=== PATIENT | female | born 1990 | race Caucasian/White ===

== ENCOUNTER 2019-06-26 12:03 | Inpatient (IN) | payer BC ==
[2019-06-26] MEDS ORDERED: Nalbuphine 10 MG/1 ML Vial IVPUSH PRN (12:32)
[2019-06-26] MEDS ORDERED: Ondansetron 4 MG/2 ML SDV IVPUSH PRN (12:32)
[2019-06-26] MEDS ORDERED: Sodium Chloride 0.9% 10 ML Syringe FLUSH PRN (12:32)
[2019-06-26] MEDS ORDERED: Lactated Ringers 1,000 ML ONE (12:38)
[2019-06-26] MEDS ORDERED: Oxytocin/Lactated Ringers 10 UNIT/1,000 ML BAG IV ONE (12:38)
[2019-06-26] MEDS ORDERED: Lidocaine 1% 50 ML MDV INJECT SCH (12:45)
[2019-06-26] MEDS ORDERED: Oxytocin/Lactated Ringers 10 UNIT/1,000 ML BAG IV SCH (12:45)
[2019-06-26] MEDS: Oxytocin/Lactated Ringers 10 UNIT/1,000 ML BAG IV SCH (13:14)
[2019-06-26] MEDS: Lactated Ringers 1,000 ML IV SCH ×4 (13:15→23:55)
--- NOTE | 2019-06-26 14:21 | PCM.LDHP ---
L&D History of Present Illness - General Date of Service: 06/26/19 Admit Problem/Dx: Patient Status Order with Admit Dx/Problem 06/26/19 12:32 Patient Status [ADT] Routine Admission Diagnosis/Problem Admission Diagnosis/Problem 06/26/19 14:14 Justine is a 28-year-old 2 para 0010 white female at 41-5/7 weeks gestational age with an ROMAIN of 06/14/2019 admitted for medical induction of labor due to postdates. Source of Information: Patient History Limitations: Reports: No Limitations - History of Present Illness Introduction:: Justine is a 28-year-old 2 para 0010 white female at 41-5/7 weeks gestational age with an ROMAIN of 06/14/2019 admitted for medical induction of labor due to postdates.The procedure, risks, benefits, alternatives of care been discussed with patient. She appears understand and wishes to proceed. Patient was then followed closely over the last 2 weeks with testing which has been reassuring. PICK REMOVER history 2 para 0010. ROMAIN of 06/14/2019 as determined by a 19 weeks ultrasound and a 33 week ultrasound. Patient had menarche at approximately age 12. Cycles irregular. Last menstrual cycle was unknown. Patient received late care. course was otherwise relatively unremarkable. She is group B strep negative. She had an invasive testing which was negative. She plans to breast-feed. She is on ferrous sulfate for mildly decreased hemoglobin. Course patient's first visit in our clinic was at 30 weeks and 4 days. She made good fundal height growth. Her weight increased from 178 pounds at her first visit to 203 pounds for 15 pound weight gain. laboratory testing shows blood to be O+ with a negativescreen. Her second trimester testing showed a hemoglobin 11.9 g/dL with platelets at 265, 000. Her GTT was normal at 97. Follow-up hemoglobin was 13.0 g/dL and platelets were 246,000. RPR is nonreactive. Allergies: None Medications: 1. Ferrous sulfate 325 mg by mouth daily. 2. Probiotic oral capsule by mouth daily 3. [place]imes-3 capsule 2 daily 4. Vitamin D Daily 5. Magnesium Tabs Daily 6. Multivitamin Oral Tablet Daily Past Medical History: Remarkable Past Surgical History: 1. Tonsillectomy 2013 Family History: Glue with Down Syndrome. Mother Is Alive and Well. Father Is Alive Is the Recipient of a Kidney Transplant. Does Have a History of Melanoma. One Brother Alive and Well. One Sister Alive and Well. Maternal Grandmother Is Alive and Well. Maternal Grandfather Is Secondary to Lung CancerWas a Smoker. Paternal Grandmother Is Alive at Age 91 and Paternal Grandfather Is at Age 90. No Family History of Cancer, Bleeding or Clotting Disorders , Anesthesia Abnormalities or -related Issues. Social History: Patient Is Single and Lives in [place], [place]. The Significant Other and Father the Baby Is Gerardo Rinaldi. She Does Not Use Any Significant Most Alcohol, Drugs or Tobacco. Review of systems: In general patient has no complaints. Baby has been active. She has had some Yash Escalante contractions. Skin: Negative Lungs: No infectious symptoms or shortness of breath Cardiovascular: No chest pain or exercise intolerance Breasts: Changes associated . Patient plans to breast-feed GI: Negative : Body Habitus changes associated with Musculoskeletal: Negative Neurological: Negative In general the patient is well-developed, well-nourished, pleasant female of stated age in no acute distress. On last evaluation in clinic 06/23/2019 blood pressure is 112/82. Weight was 203.6 pounds. Her pre- weight by history was 178.4 pounds. Height is 5 feet 5 inches. Skin is warm dry without lesions. HEENT, neck and back within normal limits. Lungs are clear with good breath sounds in all lung emerson. Cardiovascular exam shows regular and rhythm without murmurs. Abdomen is gravid with fundal height on last evaluation clinic at 38 cm. Baby in vertex presentation. Genital-cervix is 2, 70% effaced, soft, -3 station, mid position. Extremities and neurological exam are grossly within normal limits. - Related Data Allergies/Adverse Reactions: Allergies Allergy/AdvReac Type Severity Reaction Status Date / Time No Known Allergies Allergy Verified 06/26/19 12:32 H&P Review of Systems - Review of Systems: Review Of Systems: See Below L&D Exam - Exam Exam: See Below - Vital Signs Weight: 94.347 kg - Patient Data Lab Results Last 24 hrs: Laboratory Results - last 24 hr 06/26/19 Range/Units 12:45 WBC 9.09 (3.98-10.04) K/mm3 RBC 4.34 (3.98-5.22) M/mm3 Hgb 12.6 (11.2-15.7) gm/dl Hct 37.5 (34.1-44.9) % MCV 86.4 (79.4-94.8) fl MCH 29.0 (25.6-32.2) pg MCHC 33.6 (32.2-35.5) g/dl RDW Std Deviation 42.6 (36.4-46.3) fL Plt Count 252 (182-369) K/mm3 MPV 9.9 (9.4-12.3) fl Neut % (Auto) 72.4 H (34.0-71.1) % Lymph % (Auto) 17.3 L (19.3-51.7) % [place] % (Auto) 8.9 (4.7-12.5) % Eos % (Auto) 1.2 (0.7-5.8) Baso % (Auto) 0.1 (0.1-1.2) % Neut # (Auto) 6.58 H (1.56-6.13) K/mm3 Lymph # (Auto) 1.57 (1.18-3.74) K/mm3 [place] # (Auto) 0.81 H (0.24-0.36) K/mm3 Eos # (Auto) 0.11 (0.04-0.36) K/mm3 Baso # (Auto) 0.01 (0.01-0.08) K/mm3 Result Diagrams: 06/26/19 12:45 Problem List Initiated/Reviewed/Updated: Yes Orders Last 24hrs: Active Orders 24 hr Category Date Time Status Patient Status [ADT] Routine ADT 06/26/19 12:32 Active Activity as Tolerated [RC] PFP Care 06/26/19 12:32 Active Communication Order [RC] ASDIRECTED Care 06/26/19 12:32 Active Heart Tones [RC] ASDIRECTED Care 06/26/19 12:33 Active Non Stress Test [RC] PER UNIT ROUTINE Care 06/26/19 12:32 Active Notify Provider [RC] PFP Care 06/26/19 12:32 Active Notify Provider [RC] PRN Care 06/26/19 12:32 Active Peripheral IV Care [RC] . DIRECTED Care 06/26/19 12:33 Active Pump Management, Intrathecal [RC] ASDIRECTED Care 06/26/19 12:33 Active Vital Signs [RC] PER UNIT ROUTINE Care 06/26/19 12:32 Active Regular Diet [DIET] Diet 06/26/19 Lunch Active RAPID PLASMA REAGIN,RPR [CHEM] Routine Lab 06/26/19 12:45 Received Lactated Ringers [Ringers, Lactated] 1,000 ml Med 06/26/19 12:45 Active IV ASDIRECTED Lidocaine 1% [Xylocaine 1%] Med 06/26/19 12:45 Active 50 ml INJECT .ONETIME Nalbuphine [Nubain] Med 06/26/19 12:32 Active 10 mg IVPUSH Q2H PRN Ondansetron [Zofran] Med 06/26/19 12:32 Active 4 mg IVPUSH Q4H PRN Oxytocin/Lactated Ringers [Pitocin in LR 10 Units/1,000 Med 06/26/19 12:45 Active ML] 10 unit in 1,000 ml IV .CONTINUOUS Oxytocin/Lactated Ringers [Pitocin in LR 10 Units/1,000 Med 06/26/19 12:45 Active ML] 10 unit in 1,000 ml IV TITRATE Sodium Chloride 0.9% [Saline Flush] Med 06/26/19 12:32 Active 10 ml FLUSH ASDIRECTED PRN Electronic Heart Tones Ext w TOCO [WOMSER] Oth 06/26/19 12:32 Ordered Routine Electronic Heart Tones Internal [WOMSER] Per Unit Oth 06/26/19 12:32 Ordered Routine Peripheral IV Insertion Adult [OM.PC] Routine Oth 06/26/19 12:32 Ordered Resuscitation Status Routine Resus Stat 06/26/19 12:32 Ordered Medication Orders Lactated Ringer's (Ringers, Lactated) 1,000 mls @ 100 mls/hr IV ASDIRECTED HUGH Last Admin: 06/26/19 13:15 Dose: 100 mls/hr Oxytocin/Lactated Ringer's (Pitocin In Lr 10 Units/1,000 Ml) 10 unit in 1,000 mls @ 12 mls/hr IV TITRATE HUGH; Protocol Last Admin: 06/26/19 13:14 Dose: 2 munits/min, 12 mls/hr Oxytocin/Lactated Ringer's (Pitocin In Lr 10 Units/1,000 Ml) 10 unit in 1,000 mls @ 500 mls/hr IV .CONTINUOUS HUGH Lidocaine HCl (Xylocaine 1%) 50 ml INJECT .ONETIME HUGH Nalbuphine HCl (Nubain) 10 mg IVPUSH Q2H PRN PRN Reason: Pain Ondansetron HCl (Zofran) 4 mg IVPUSH Q4H PRN PRN Reason: Nausea/Vomiting Sodium Chloride (Saline Flush) 10 ml FLUSH ASDIRECTED PRN PRN Reason: Keep Vein Open Assessment/Plan Comment:: 1. 41-5/7 week intrauterine , admitted for medical induction of labor 2.Group B strep screen negative 3. Patient plans to breast-feed 4. Patient is okay with epidural. Plan: 1. Pitocin induction of labor with artificial rupture membranes induction when head descends. 2. Epidural when necessary for labor analgesia 3. Chest 8 normal spontaneous vaginal delivery 4. CBC and RPR per protocol 5. Support breast-feeding decision.
[2019-06-26] MEDS ORDERED: fentaNYL/Bupivacaine/NS 2 MCG-0.125% 250 ML EPIDUR PRN (22:29)
[2019-06-26] MEDS ORDERED: ePHEDrine 50 MG/ML SDV IVPUSH PRN (22:29)
[2019-06-26] MEDS ORDERED: fentaNYL 100 MCG/2 ML SDV EPIDUR PRN (22:29)
[2019-06-26] MEDS ORDERED: diphenhydrAMINE 50 MG/ML SDV IVPUSH PRN (22:29)
--- NOTE | 2019-06-26 22:55 | PCM.PREANE ---
Preanesthetic Assessment - Procedure Proposed Procedure: bucky - Anesthesia/Transfusion/Family Hx Anesthesia History: Prior Anesthesia Without Reaction Family History of Anesthesia Reaction: No Transfusion History: No Prior Transfusion(s) - Review of Systems General: No Symptoms Pulmonary: No Symptoms Cardiovascular: No Symptoms Gastrointestinal: No Symptoms Neurological: No Symptoms Other: Reports: None - Physical Assessment Vital Signs: Last Vital Signs Temp 98.6 F 06/26/19 12:32 Pulse 89 06/26/19 12:32 Resp 16 06/26/19 12:32 BP 130/67 06/26/19 12:32 Pulse Ox Height: 5 ft 5 in Weight: 94.347 kg ASA Class: 2 Mental Status: Alert & Oriented x3 Airway Class: Mallampati = 1 Dentition: Reports: Normal Dentition Thyro-Mental Finger Breadths: 3 Mouth Opening Finger Breadths: 3 ROM/Head Extension: Full Lungs: Clear to Auscultation, Normal Respiratory Effort Cardiovascular: Regular Rate, Regular Rhythm - Lab Values: Laboratory Last Values WBC 9.09 K/mm3 (3.98-10.04) 06/26/19 12:45 RBC 4.34 M/mm3 (3.98-5.22) 06/26/19 12:45 Hgb 12.6 gm/dl (11.2-15.7) 06/26/19 12:45 Hct 37.5 % (34.1-44.9) 06/26/19 12:45 MCV 86.4 fl (79.4-94.8) 06/26/19 12:45 MCH 29.0 pg (25.6-32.2) 06/26/19 12:45 MCHC 33.6 g/dl (32.2-35.5) 06/26/19 12:45 RDW Std Deviation 42.6 fL (36.4-46.3) 06/26/19 12:45 Plt Count 252 K/mm3 (182-369) 06/26/19 12:45 MPV 9.9 fl (9.4-12.3) 06/26/19 12:45 Neut % (Auto) 72.4 % (34.0-71.1) H 06/26/19 12:45 Lymph % (Auto) 17.3 % (19.3-51.7) L 06/26/19 12:45 [place] % (Auto) 8.9 % (4.7-12.5) 06/26/19 12:45 Eos % (Auto) 1.2 (0.7-5.8) 06/26/19 12:45 Baso % (Auto) 0.1 % (0.1-1.2) 06/26/19 12:45 Neut # (Auto) 6.58 K/mm3 (1.56-6.13) H 06/26/19 12:45 Lymph # (Auto) 1.57 K/mm3 (1.18-3.74) 06/26/19 12:45 [place] # (Auto) 0.81 K/mm3 (0.24-0.36) H 06/26/19 12:45 Eos # (Auto) 0.11 K/mm3 (0.04-0.36) 06/26/19 12:45 Baso # (Auto) 0.01 K/mm3 (0.01-0.08) 06/26/19 12:45 RPR Non-reactive (NONREACTIVE) 06/26/19 12:45 - Allergies Allergies/Adverse Reactions: Allergies Allergy/AdvReac Type Severity Reaction Status Date / Time No Known Allergies Allergy Verified 06/26/19 12:32 - Blood Blood Available: No - Acknowledgements Anesthesia Type Planned: Epidural Pt an Appropriate Candidate for the Planned Anesthesia: Yes Alternatives and Risks of Anesthesia Discussed w Pt/Guardian: Yes Pt/Guardian Understands and Agrees with Anesthesia Plan: Yes PreAnesthesia Questionnaire Cardiovascular History: Reports: None Respiratory History: Reports: None 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: : 1 Para: 0 - Past Surgical History HEENT Surgical History: Reports: Tonsillectomy - SUBSTANCE USE Smoking Status *Q: Never Smoker Tobacco Use Within Last Twelve Months: No Second Hand Smoke Exposure: No Days Per Week of Alcohol Use: 0 Recreational Drug Use History: No - HOME MEDS Home Medications: Home Meds Iron 1 tab PO DAILY 06/26/19 [History] [id number]/Iron Fumarate/FA/DSS [ 19 Tablet] 1 tab PO DAILY 06/26/19 [ History] - CURRENT (IN HOUSE) MEDS Current Meds: Current Medications Diphenhydramine HCl (Benadryl) 25 mg IVPUSH Q6H PRN PRN Reason: pruritis Ephedrine Sulfate (Ephedrine Sulfate) 5 mg IVPUSH ASDIRECTED PRN PRN Reason: Hypotension Fentanyl (Sublimaze) 100 mcg EPIDUR Q3H PRN PRN Reason: Pain Last Admin: 06/26/19 22:38 Dose: 100 mcg Fentanyl/Bupivacaine HCl (Fentanyl/Bupivacaine/Ns 2 Mcg-0.125% 250 Ml) 0 ml EPIDUR CONTINUOUS PRN PRN Reason: Pain Last Admin: 06/26/19 22:40 Dose: 250 ml Lactated Ringer's (Ringers, Lactated) 1,000 mls @ 100 mls/hr IV ASDIRECTED HUGH Last Admin: 06/26/19 22:06 Dose: 100 mls/hr Oxytocin/Lactated Ringer's (Pitocin In Lr 10 Units/1,000 Ml) 10 unit in 1,000 mls @ 12 mls/hr IV TITRATE HUGH; Protocol Last Titration: 06/26/19 17:35 Dose: 14 munits/min, 84 mls/hr Oxytocin/Lactated Ringer's (Pitocin In Lr 10 Units/1,000 Ml) 10 unit in 1,000 mls @ 500 mls/hr IV .CONTINUOUS HUGH Lidocaine HCl (Xylocaine 1%) 50 ml INJECT .ONETIME HUGH Nalbuphine HCl (Nubain) 10 mg IVPUSH Q2H PRN PRN Reason: Pain Last Admin: 06/26/19 21:53 Dose: 10 mg Ondansetron HCl (Zofran) 4 mg IVPUSH Q4H PRN PRN Reason: Nausea/Vomiting Sodium Chloride (Saline Flush) 10 ml FLUSH ASDIRECTED PRN PRN Reason: Keep Vein Open Discontinued Medications Lactated Ringer's (Ringers, Lactated) Confirm Administered Dose 1,000 mls @ as directed .ROUTE .STK-MED ONE Stop: 06/26/19 12:39 Last Admin: 06/26/19 13:12 Dose: Not Given Oxytocin/Lactated Ringer's (Pitocin In Lr 10 Units/1,000 Ml) Confirm Administered Dose 10 unit in 1,000 mls @ as directed IV .STK-MED ONE Stop: 06/26/19 12:39 Last Admin: 06/26/19 13:12 Dose: Not Given
[2019-06-27] MEDS ORDERED: Bupivacaine 0.25% 10 ML SDV ONE ×2
[2019-06-27] MEDS ORDERED: ePHEDrine/Normal Saline 25 MG/5 ML Syringe ONE ×2
[2019-06-27] MEDS ORDERED: Sodium Chloride 0.9% 1,000 ML ONE ×2 (00:03→06:37)
[2019-06-27] MEDS ORDERED: Terbutaline 1 MG/ML SDV ONE (00:37)
--- NOTE | 2019-06-27 01:03 | PCM.SN ---
- Free Text/Narrative Note: Labor progress note: I was called to place an intrauterine pressure catheter to more closely monitor the contractions and evaluate some heart rate decelerations. On evaluation patient is noted to be at 10 units of Pitocin per hour and was razia approximately every 2-1/2-3 minutes. Contractions were strong as identified by the intrauterine pressure catheter after its placement. It was placed without any concerns. Scalp electrode was also placed. heart tones showed variable decelerations with potential late components. Some of the heart rates were in the high 80s to 100. She was started on amnioinfusion using normal saline as the distending medium and with this the heart tones returned to near normal. At this time Pitocin has been discontinued and patient continues to contract proximally every 3 minutes. Her still moderate in intensity. Her cervix is 5 cm, 100% effaced, -1 station. Baby appears to be in a left occiput anterior position. Patient is group B strep negative. Assessment: 1. Moderate progress in labor. 2. States with meconium stained amniotic fluid and the very minimal amount of amniotic fluid as potential factor related to her heart rate decelerations. Plan: 1. Monitor heart rate pattern very closely. 2. Continue with amnioinfusion. 3. Discussions then held with patient as to possible need for section if she has recurrence/persistence of nonreassuring heart tones. The procedure, risks, benefits, alternatives of care discussed due to the patient. She appears understand. She has signed consent in advance in case an urgent C- section was needed at a later time 4. Indwelling bladder catheter placed 5. SCDs to be placed.
[2019-06-27] MEDS: Lactated Ringers 1,000 ML IV SCH (07:06)
[2019-06-27] MEDS: Oxytocin/Lactated Ringers 10 UNIT/1,000 ML BAG IV SCH (08:51)
[2019-06-27] MEDS ORDERED: Witch Hazel Medicated Pads 40/Jar TOP PRN (10:48)
[2019-06-27] MEDS ORDERED: Benzocaine/Menthol 20%-0.5% Spray 56 GM Canister TOP PRN (10:49)
--- NOTE | 2019-06-27 11:55 | PCM48HPAN ---
Post Anesthesia Note - EVALUATION WITHIN 48HRS OF ANESTHETIC Vital Signs in Normal Range: Yes Patient Participated in Evaluation: Yes Respiratory Function Stable: Yes Airway Patent: Yes Cardiovascular Function Stable: Yes Hydration Status Stable: Yes Pain Control Satisfactory: Yes Nausea and Vomiting Control Satisfactory: Yes Mental Status Recovered: Yes Vital Signs: Last Vital Signs Temp 37.0 C 06/26/19 12:32 Pulse 89 06/26/19 12:32 Resp 16 06/26/19 12:32 BP 130/67 06/26/19 12:32 Pulse Ox
[2019-06-27] MEDS: Ibuprofen 600 MG Tab PO PRN ×2 (13:40→20:43)
[2019-06-27] MEDS: Docusate Sodium 100 MG Cap PO PRN (21:00)
[2019-06-28] MEDS: Ibuprofen 600 MG Tab PO PRN ×3 (03:55→20:55)
--- NOTE | 2019-06-28 08:49 | PCM.PNPP ---
- General Info Date of Service: 06/28/19 Functional Status: Reports: Pain Controlled - Review of Systems General: Reports: No Symptoms HEENT: Reports: No Symptoms Pulmonary: Reports: No Symptoms Cardiovascular: Reports: No Symptoms Gastrointestinal: Reports: No Symptoms Genitourinary: Reports: No Symptoms Musculoskeletal: Reports: No Symptoms Skin: Reports: No Symptoms Neurological: Reports: No Symptoms Psychiatric: Reports: No Symptoms - General Info Date of Service: 06/28/19 - Patient Data Vital Signs - Most Recent: Last Vital Signs Temp 36.3 C 06/27/19 20:49 Pulse 84 06/27/19 20:49 Resp 15 06/27/19 20:49 BP 115/67 06/27/19 20:49 Pulse Ox 98 06/27/19 20:49 Weight - Most Recent: 94.347 kg Med Orders - Current: Current Medications Benzocaine/Menthol (Dermoplast Pain Relief [place]) 1 gm TOP ASDIRECTED PRN PRN Reason: perineal pain Last Admin: 06/27/19 12:39 Dose: 1 applic Diphenhydramine HCl (Benadryl) 25 mg IVPUSH Q6H PRN PRN Reason: pruritis Docusate Sodium (Colace) 100 mg PO BID PRN PRN Reason: Constipation Last Admin: 06/27/19 21:00 Dose: 100 mg Ephedrine Sulfate (Ephedrine Sulfate) 5 mg IVPUSH ASDIRECTED PRN PRN Reason: Hypotension Fentanyl (Sublimaze) 100 mcg EPIDUR Q3H PRN PRN Reason: Pain Last Admin: 06/26/19 22:38 Dose: 100 mcg Fentanyl/Bupivacaine HCl (Fentanyl/Bupivacaine/Ns 2 Mcg-0.125% 250 Ml) 0 ml EPIDUR CONTINUOUS PRN PRN Reason: Pain Last Admin: 06/26/19 22:40 Dose: 250 ml Lactated Ringer's (Ringers, Lactated) 1,000 mls @ 100 mls/hr IV ASDIRECTED HUGH Last Admin: 06/27/19 07:06 Dose: 100 mls/hr Oxytocin/Lactated Ringer's (Pitocin In Lr 10 Units/1,000 Ml) 10 unit in 1,000 mls @ 12 mls/hr IV TITRATE HUGH; Protocol Last Titration: 06/27/19 10:19 Dose: 500 mls/hr Oxytocin/Lactated Ringer's (Pitocin In Lr 10 Units/1,000 Ml) 10 unit in 1,000 mls @ 500 mls/hr IV .CONTINUOUS HUGH Ibuprofen (Motrin) 600 mg PO Q6H PRN PRN Reason: Pain/Fever Last Admin: 06/28/19 03:55 Dose: 600 mg Lidocaine HCl (Xylocaine 1%) 50 ml INJECT .ONETIME HUGH Nalbuphine HCl (Nubain) 10 mg IVPUSH Q2H PRN PRN Reason: Pain Last Admin: 06/26/19 21:53 Dose: 10 mg Ondansetron HCl (Zofran) 4 mg IVPUSH Q4H PRN PRN Reason: Nausea/Vomiting Sodium Chloride (Saline Flush) 10 ml FLUSH ASDIRECTED PRN PRN Reason: Keep Vein Open Franc[place]ke Chan (Tucks) 1 pad TOP ASDIRECTED PRN PRN Reason: perineal pain Last Admin: 06/27/19 12:39 Dose: 1 applic Discontinued Medications Bupivacaine HCl (Sensorcaine-Mpf 0.25%) 10 ml .ROUTE .STK-MED ONE Stop: 06/27/19 00:01 Bupivacaine HCl (Sensorcaine-Mpf 0.25%) 10 ml .ROUTE .STK-MED ONE Stop: 06/27/19 00:01 Ephedrine Sulfate (Ephedrine In Ns) 25 mg .ROUTE .STK-MED ONE Stop: 06/27/19 00:01 Ephedrine Sulfate (Ephedrine In Ns) 25 mg .ROUTE .STK-MED ONE Stop: 06/27/19 00:01 Lactated Ringer's (Ringers, Lactated) Confirm Administered Dose 1,000 mls @ as directed .ROUTE .STK-MED ONE Stop: 06/26/19 12:39 Last Admin: 06/26/19 13:12 Dose: Not Given Oxytocin/Lactated Ringer's (Pitocin In Lr 10 Units/1,000 Ml) Confirm Administered Dose 10 unit in 1,000 mls @ as directed IV .STK-MED ONE Stop: 06/26/19 12:39 Last Admin: 06/26/19 13:12 Dose: Not Given Sodium Chloride (Normal Saline) Confirm Administered Dose 1,000 mls @ as directed .ROUTE .STK-MED ONE Stop: 06/27/19 00:04 Last Admin: 06/27/19 00:17 Dose: Not Given Sodium Chloride (Normal Saline) Confirm Administered Dose 1,000 mls @ as directed .ROUTE .STK-MED ONE Stop: 06/27/19 06:38 Last Admin: 06/27/19 07:03 Dose: Not Given Terbutaline Sulfate (Brethine) Confirm Administered Dose 1 mg .ROUTE .STK-MED ONE Stop: 06/27/19 00:38 Last Admin: 06/27/19 09:11 Dose: Not Given - Infant Interaction Infant Disposition, : at Bedside Support Person: Significant Other - Recovery Exam Fundal Tone: Firm Fundal Level: 1 Fingerbreadths Below Umbilicus Fundal Placement: Midline Lochia Amount: Small Lochia Color: Rubra/Red Episiotomy/Laceration: Approximated Bladder Status: Voiding Urinary Elimination: Voided - Exam General: Alert, Oriented HEENT: Pupils Equal Neck: Supple Lungs: Clear to Auscultation, Normal Respiratory Effort Cardiovascular: Regular Rate, Regular Rhythm GI/Abdominal Exam: Normal Bowel Sounds, Soft, Non-Tender, No Organomegaly, No Distention, No Abnormal Bruit, No Mass, Pelvis Stable Extremities: Normal Inspection Skin: Warm, Dry, Intact Wound/Incisions: Healing Well Neurological: No New Focal Deficit Psy/Mental Status: Alert, Normal Affect, Normal Mood - Problem List Review Problem List Initiated/Reviewed/Updated: Yes - My Orders Last 24 Hours: My Active Orders 06/27/19 20:44 Docusate Sodium [Colace] 100 mg PO BID PRN - Assessment Assessment:: Term delivery PPD1. Doing ok. Some breast feeding challenges. Home tomorrow.
[2019-06-28] MEDS: Docusate Sodium 100 MG Cap PO PRN (14:34)
--- NOTE | 2019-06-28 15:09 | PCM.SN ---
- Free Text/Narrative Note: Delivery note: Justine is a 28-year-old 2 now para 1011 white female was admitted for induction of labor on 2018. She underwent Pitocin induction with artificial rupture membranes augmentation and slowly but steadily progressed to complete cervical dilation. She had decreased amount of amniotic fluid which is felt to be due to her postdates and had light meconium-stained amniotic fluid. She began having variable decelerations and an IUPC was placed followed by amnioinfusion. That her heart rate abnormalities. The electrode was also applied. She underwent epidural for labor analgesia. The patient progressed to complete cervical dilation at 0500 hrs. on 2018. She pushed for a short period time then rested and labor down. At 1018 hrs. on 06/27/2019 she delivered a viable, johsnon, with Apgars of 9 and 9 via a vacuum extraction delivery. Vacuum extraction was done for maternal fatigue. This was accomplished with 1 contraction. Patient did very well. The baby weighed 3500 g (7 pounds 11.5 ounces), had Apgars of 9 and 9 and length of 21.0 inches. The patient had a second-degree perineal laceration and a right vaginal laceration. These were repaired in a routine fashion using 3-0 Monocryl suture. After delivery of the baby Pitocin was increased to 500 mL per hour per protocol. This to increase uterine tone facilitate a decrease in likelihood of uterine bleeding. Estimated blood loss was 200 mL. The umbilical cord had 3 vessels and cord blood was obtained. The placenta delivered in a [place] presentation, appeared intact and complete and was discarded per patient desire. Patient plans to breast-feed. Condition: Good.
[2019-06-29] MEDS: Ibuprofen 600 MG Tab PO PRN (02:50)
--- NOTE | 2019-06-29 08:32 | PCM.DCSUM1 ---
Discharge Summary - Hospital Course HPI Initial Comments: Doing well. Desires discharge today on PPD2. Diagnosis: Stroke: No - Discharge Data Discharge Date: 06/29/19 Discharge Disposition: Home, Self-Care 01 Condition: Good - Referral to Home Health Primary Care Physician: Jason Silvestre MD - Patient Summary/Data Hospital Course: Justine is a 28-year-old 2 now para 1011 white female was admitted for induction of labor on 2018. She underwent Pitocin induction with artificial rupture membranes augmentation and slowly but steadily progressed to complete cervical dilation. She had decreased amount of amniotic fluid which is felt to be due to her postdates and had light meconium-stained amniotic fluid. She began having variable decelerations and an IUPC was placed followed by amnioinfusion. That her heart rate abnormalities. The electrode was also applied. She underwent epidural for labor analgesia. The patient progressed to complete cervical dilation at 0500 hrs. on 2018. She pushed for a short period time then rested and labor down. At 1018 hrs. on 06/27/2019 she delivered a viable, johnson, infant with Apgars of 9 and 9 via a vacuum extraction delivery. Vacuum extraction was done for maternal fatigue. This was accomplished with 1 contraction. Patient did very well. The baby weighed 3500 g (7 pounds 11.5 ounces), had Apgars of 9 and 9 and length of 21.0 inches. The patient had a second-degree perineal laceration and a right vaginal laceration. These were repaired in a routine fashion using 3-0 Monocryl suture. After delivery of the baby Pitocin was increased to 500 mL per hour per protocol. This to increase uterine tone facilitate a decrease in likelihood of uterine bleeding. Estimated blood loss was 200 mL. The umbilical cord had 3 vessels and cord blood was obtained. The placenta delivered in a [place] presentation, appeared intact and complete and was discarded per patient desire. - Patient Instructions Diet: Usual Diet as Tolerated Activity: No Strenuous Activities Driving: May Drive Today Showering/Bathing: May Shower Wound/Incision Care: Keep Operative Site/Wound Site Clean and Dry Notify Provider of: Fever, Increased Pain, Swelling and Redness, Drainage, Nausea and/or Vomiting - Discharge Plan *PRESCRIPTION DRUG MONITORING PROGRAM REVIEWED*: No *COPY OF PRESCRIPTION DRUG MONITORING REPORT IN PATIENT KODY: No Home Medications: Home Meds Iron 1 tab PO DAILY 06/26/19 [History] [id number]/Iron Fumarate/FA/DSS [ 19 Tablet] 1 tab PO DAILY 06/26/19 [ History] Patient Handouts: and Mastitis, and Self-Care, Easy -to-Read, Vaginal Delivery, Care After, Breast Pumping Tips, [id number] Referrals: Jason Silvestre MD [Primary Care Provider] - (2 weeks) - Discharge Summary/Plan Comment DC Time >30 min.: No - General Info Date of Service: 06/29/19 Functional Status: Reports: Pain Controlled - Review of Systems General: Reports: No Symptoms HEENT: Reports: No Symptoms Pulmonary: Reports: No Symptoms Cardiovascular: Reports: No Symptoms Gastrointestinal: Reports: No Symptoms Genitourinary: Reports: No Symptoms Musculoskeletal: Reports: No Symptoms Skin: Reports: No Symptoms Neurological: Reports: No Symptoms Psychiatric: Reports: No Symptoms - Patient Data Vitals - Most Recent: Last Vital Signs Temp 37.1 C 06/29/19 03:15 Pulse 68 06/29/19 03:15 Resp 16 06/29/19 03:15 BP 115/60 06/29/19 03:15 Pulse Ox 99 06/29/19 03:15 Weight - Most Recent: 94.347 kg I&O - Last 24 hours: Intake & Output 06/28/19 06/29/19 06/29/19 22:59 06:59 14:59 Intake Total 320 Balance 320 Med Orders - Current: Current Medications Benzocaine/Menthol (Dermoplast Pain Relief [place]) 1 gm TOP ASDIRECTED PRN PRN Reason: perineal pain Last Admin: 06/27/19 12:39 Dose: 1 applic Diphenhydramine HCl (Benadryl) 25 mg IVPUSH Q6H PRN PRN Reason: pruritis Docusate Sodium (Colace) 100 mg PO BID PRN PRN Reason: Constipation Last Admin: 06/28/19 14:34 Dose: 100 mg Ephedrine Sulfate (Ephedrine Sulfate) 5 mg IVPUSH ASDIRECTED PRN PRN Reason: Hypotension Fentanyl (Sublimaze) 100 mcg EPIDUR Q3H PRN PRN Reason: Pain Last Admin: 06/26/19 22:38 Dose: 100 mcg Fentanyl/Bupivacaine HCl (Fentanyl/Bupivacaine/Ns 2 Mcg-0.125% 250 Ml) 0 ml EPIDUR CONTINUOUS PRN PRN Reason: Pain Last Admin: 06/26/19 22:40 Dose: 250 ml Lactated Ringer's (Ringers, Lactated) 1,000 mls @ 100 mls/hr IV ASDIRECTED HUGH Last Admin: 06/27/19 07:06 Dose: 100 mls/hr Oxytocin/Lactated Ringer's (Pitocin In Lr 10 Units/1,000 Ml) 10 unit in 1,000 mls @ 12 mls/hr IV TITRATE HUGH; Protocol Last Titration: 06/27/19 10:19 Dose: 500 mls/hr Oxytocin/Lactated Ringer's (Pitocin In Lr 10 Units/1,000 Ml) 10 unit in 1,000 mls @ 500 mls/hr IV .CONTINUOUS HUGH Ibuprofen (Motrin) 600 mg PO Q6H PRN PRN Reason: Pain/Fever Last Admin: 06/29/19 02:50 Dose: 600 mg Lidocaine HCl (Xylocaine 1%) 50 ml INJECT .ONETIME HUGH Nalbuphine HCl (Nubain) 10 mg IVPUSH Q2H PRN PRN Reason: Pain Last Admin: 06/26/19 21:53 Dose: 10 mg Ondansetron HCl (Zofran) 4 mg IVPUSH Q4H PRN PRN Reason: Nausea/Vomiting Sodium Chloride (Saline Flush) 10 ml FLUSH ASDIRECTED PRN PRN Reason: Keep Vein Open Mikey Chan (Tucks) 1 pad TOP ASDIRECTED PRN PRN Reason: perineal pain Last Admin: 06/27/19 12:39 Dose: 1 applic Discontinued Medications Bupivacaine HCl (Sensorcaine-Mpf 0.25%) 10 ml .ROUTE .STK-MED ONE Stop: 06/27/19 00:01 Bupivacaine HCl (Sensorcaine-Mpf 0.25%) 10 ml .ROUTE .STK-MED ONE Stop: 06/27/19 00:01 Ephedrine Sulfate (Ephedrine In Ns) 25 mg .ROUTE .STK-MED ONE Stop: 06/27/19 00:01 Ephedrine Sulfate (Ephedrine In Ns) 25 mg .ROUTE .STK-MED ONE Stop: 06/27/19 00:01 Lactated Ringer's (Ringers, Lactated) Confirm Administered Dose 1,000 mls @ as directed .ROUTE .STK-MED ONE Stop: 06/26/19 12:39 Last Admin: 06/26/19 13:12 Dose: Not Given Oxytocin/Lactated Ringer's (Pitocin In Lr 10 Units/1,000 Ml) Confirm Administered Dose 10 unit in 1,000 mls @ as directed IV .STK-MED ONE Stop: 06/26/19 12:39 Last Admin: 06/26/19 13:12 Dose: Not Given Sodium Chloride (Normal Saline) Confirm Administered Dose 1,000 mls @ as directed .ROUTE .STK-MED ONE Stop: 06/27/19 00:04 Last Admin: 06/27/19 00:17 Dose: Not Given Sodium Chloride (Normal Saline) Confirm Administered Dose 1,000 mls @ as directed .ROUTE .STNightOwl-MED ONE Stop: 06/27/19 06:38 Last Admin: 06/27/19 07:03 Dose: Not Given Terbutaline Sulfate (Brethine) Confirm Administered Dose 1 mg .ROUTE .STNightOwl-MED ONE Stop: 06/27/19 00:38 Last Admin: 06/27/19 09:11 Dose: Not Given - Exam General: Reports: Alert, Oriented HEENT: Reports: Pupils Equal, Pupils Reactive, EOMI, Mucous Membr. Moist/[place] Neck: Reports: Supple Lungs: Reports: Clear to Auscultation, Normal Respiratory Effort Cardiovascular: Reports: Regular Rate, Regular Rhythm GI/Abdominal Exam: Normal Bowel Sounds, Soft, Non-Tender, No Organomegaly, No Distention, No Abnormal Bruit, No Mass, Pelvis Stable Rectal (Female) Exam: Normal Exam, Normal Rectal Tone Back Exam: Reports: Normal Inspection, Full Range of Motion Extremities: Normal Inspection, Normal Range of Motion, Non-Tender, No Pedal Edema, Normal Capillary Refill Skin: Reports: Warm, Dry, Intact Wound/Incisions: Reports: Healing Well Neurological: Reports: No New Focal Deficit Psy/Mental Status: Reports: Alert, Normal Affect, Normal Mood
== END 2019-06-29 10:45 | disposition home or self-care (01) | DRG 560 ==
LOC: JD.OBCHECK 12:03 → JD.OB 12:06 → OBSVTOIN 06-27 10:18 → JD.OB 06-27 10:19
PROVIDERS: ADMIT Obstetrics & Gynecology; ATTEND Obstetrics & Gynecology
PROC: 10D07Z6 Extraction of Products of Conception, Vacuum, Via Natural or Artificial Opening (ICD-10-PCS; principal; 2019-06-27)
PROC: 10H07YZ Insertion of Other Device into Products of Conception, Via Natural or Artificial Opening (ICD-10-PCS; principal; 2019-06-27)
PROC: 10H073Z Insertion of Monitoring Electrode into Products of Conception, Via Natural or Artificial Opening (ICD-10-PCS; principal; 2019-06-27)
PROC: 3E0E7GC Introduction of Other Therapeutic Substance into Products of Conception, Via Natural or Artificial Opening (ICD-10-PCS; principal; 2019-06-27)
PROC: 10907ZC Drainage of Amniotic Fluid, Therapeutic from Products of Conception, Via Natural or Artificial Opening (ICD-10-PCS; 2019-06-27)
PROC: 3E033VJ Introduction of Other Hormone into Peripheral Vein, Percutaneous Approach (ICD-10-PCS; 2019-06-27)
PROC: 0KQM0ZZ Repair Perineum Muscle, Open Approach (ICD-10-PCS; 2019-06-27)
PROC: 0UQGXZZ Repair Vagina, External Approach (ICD-10-PCS; 2019-06-27)
PROC: 00HU33Z Insertion of Infusion Device into Spinal Canal, Percutaneous Approach (ICD-10-PCS; 2019-06-27)
PROC: 3E0R3BZ Introduction of Anesthetic Agent into Spinal Canal, Percutaneous Approach (ICD-10-PCS; 2019-06-27)
DX: O48.0 Post-term pregnancy (principal); Z37.0 Single live birth; O76 Abnormality in fetal heart rate and rhythm complicating labor and delivery; O77.0 Labor and delivery complicated by meconium in amniotic fluid; O70.1 Second degree perineal laceration during delivery; Z3A.41 41 weeks gestation of pregnancy
CPT/HCPCS: 36415; 51701; 59025; 59409; 85025; 86592; A9270-GY; J2300; J2590; J3010; J3490; J7050; J7120

== ENCOUNTER 2023-11-23 14:28 | Emergency (ER) | payer BC ==
[2023-11-23] MEDS ORDERED: Dextrose 5%-Lactated Ringers 1,000 ML IV SCH (14:45)
== END 2023-11-23 16:43 | disposition home or self-care (01) ==
LOC: JD.ED 14:28
DX: O99.352 Diseases of the nervous system complicating pregnancy, second trimester (principal); G43.909 Migraine, unspecified, not intractable, without status migrainosus; O99.282 Endocrine, nutritional and metabolic diseases complicating pregnancy, second trimester; E03.9 Hypothyroidism, unspecified; Z3A.14 14 weeks gestation of pregnancy; Z79.890 Hormone replacement therapy
CPT/HCPCS: 70450; 70450-26; 82947; 99284

== ENCOUNTER 2024-05-23 07:10 | Inpatient (IN) | payer BC ==
[2024-05-23] MEDS ORDERED: Lidocaine 1% 50 ML MDV INJECT PRN (07:18)
[2024-05-23] MEDS ORDERED: Sodium Chloride 0.9% 10 ML Syringe FLUSH PRN (07:18)
[2024-05-23] MEDS ORDERED: Ondansetron 4 MG/2 ML SDV IVPUSH PRN (07:18)
[2024-05-23] MEDS ORDERED: Nalbuphine 10 MG/1 ML Vial IVPUSH PRN (07:18)
[2024-05-23 08:40] LABS: BASOPHILS PERCENT AUTO 0.3 % (0.0-1.0); EOSINOPHILS ABSOLUTE AUTO 0.1 K/mm3 (0.0-0.4); EOSINOPHILS PERCENT AUTO 1.3 % (0.0-6.0); HEMATOCRIT 35.9 % (37.0-47.0); HEMOGLOBIN 11.7 gm/dl (12.0-16.0); IMMATURE GRAN ABSOLUTE AUTO 0.02 K/mm3 (0.00-0.05); IMMATURE GRAN PERCENT AUTO 0.3 % (0.0-0.4); LYMPHOCYTES ABSOLUTE AUTO 1.3 K/mm3 (1.0-4.8); LYMPHOCYTES PERCENT AUTO 16.3 % (24.0-44.0); MEAN CORPUSCULAR HEMOGLOBIN 27.2 pg (28.0-32.0); MEAN CORPUSCULAR HGB CONC 32.6 g/dl (32.0-36.0); MEAN CORPUSCULAR VOLUME 83.5 fl (83.0-99.0); MEAN PLATELET VOLUME 9.9 fl (9.4-12.3); MONOCYTES ABSOLUTE AUTO 0.6 K/mm3 (0.0-0.8); MONOCYTES PERCENT AUTO 7.4 % (0.0-8.0); NEUTROPHILS ABSOLUTE AUTO 5.8 K/mm3 (1.8-7.7); NEUTROPHILS PERCENT AUTO 74.4 % (41.0-71.0); PLATELET COUNT,PLT 226 K/mm3 (150-400); WHITE BLOOD CELL COUNT,WBC 7.74 K/mm3 (3.9-11.3)
[2024-05-23] MEDS ORDERED: Oxytocin/0.9 % Sodium Chloride 30 UNIT/500 ML BAG IV SCH (08:45)
[2024-05-23] MEDS: Lactated Ringers 1,000 ML IV SCH (08:52)
[2024-05-23] MEDS: Oxytocin/0.9 % Sodium Chloride 30 UNIT/500 ML BAG IV SCH (08:52)
[2024-05-23] MEDS: Sodium Chloride 0.9% 10 ML Syringe FLUSH SCH (10:42)
[2024-05-23] MEDS ORDERED: ePHEDrine 50 MG/ML SDV IVPUSH PRN (14:55)
[2024-05-23] MEDS ORDERED: diphenhydrAMINE 50 MG/ML SDV IVPUSH PRN (14:55)
[2024-05-23] MEDS: Bupivacaine/fentaNYL/NS 100 ML Bag EPIDUR PRN (15:12)
[2024-05-23] MEDS: Ibuprofen 600 MG Tab PO SCH (20:06)
[2024-05-23] MEDS: Benzocaine/Menthol 20%-0.5% Spray 78 GM Cannister TOP PRN (20:07)
[2024-05-23] MEDS: Witch Hazel Medicated Pads 40/Jar TOP PRN (20:07)
[2024-05-24] MEDS: Levothyroxine 25 MCG Tab PO SCH (06:27)
[2024-05-24] MEDS: Acetaminophen 325 MG Tab PO PRN (06:29)
== END 2024-05-24 16:30 | disposition home or self-care (01) | DRG 560 ==
LOC: JD.OB 07:10 → OBSVTOIN 16:23 → JD.OB 16:24
PROVIDERS: ADMIT Family Medicine; ATTEND Family Medicine
PROC: 10E0XZZ Delivery of Products of Conception, External Approach (ICD-10-PCS; principal; 2024-05-23)
PROC: 10907ZC Drainage of Amniotic Fluid, Therapeutic from Products of Conception, Via Natural or Artificial Opening (ICD-10-PCS; 2024-05-23)
PROC: 0KQM0ZZ Repair Perineum Muscle, Open Approach (ICD-10-PCS; 2024-05-23)
PROC: 3E0R3BZ Introduction of Anesthetic Agent into Spinal Canal, Percutaneous Approach (ICD-10-PCS; 2024-05-23)
PROC: 00HU33Z Insertion of Infusion Device into Spinal Canal, Percutaneous Approach (ICD-10-PCS; 2024-05-23)
PROC: 3E033VJ Introduction of Other Hormone into Peripheral Vein, Percutaneous Approach (ICD-10-PCS; 2024-05-23)
DX: O99.284 Endocrine, nutritional and metabolic diseases complicating childbirth (principal); Z37.0 Single live birth; E03.9 Hypothyroidism, unspecified; O69.81X0 Labor and delivery complicated by cord around neck, without compression, not applicable or unspecified; O70.1 Second degree perineal laceration during delivery; Z3A.39 39 weeks gestation of pregnancy; Z90.89 Acquired absence of other organs
CPT/HCPCS: 36415; 51701; 59025; 59409; 85025; 86592; A9270-GY; J3490; J7120; J7999